=== PATIENT | female | born 1985 | race Caucasian/White ===

== ENCOUNTER 2025-02-12 01:16 | Emergency (ER) | payer BC, SELFPAY ==
[2025-02-12 01:25] VITALS: BP 129/102; PULSE 115; RESP 16; TEMP 36.8; O2SAT 100
--- NOTE | 2025-02-12 01:30 | ECG_ITS ---
Test Date: 2025-02-12 01:39:37 Measurements Intervals [place] Rate: 124 P: 28 IA: 158 QRS: 12 QRSD: 100 T: 32 QT: 324 QTc: 466 Interpretive Statements SINUS TACHYCARDIA POOR R-WAVE PROGRESSION LOW QRS VOLTAGE ABNORMAL RHYTHM ECG No previous ECG available for comparison Electronically Signed On 02-12-2025 07:49:16 CDT by Tim Erickson M.D.
--- NOTE | 2025-02-12 03:50 | ECG_ITS ---
Test Date: 2025-02-12 04:00:08 Measurements Intervals [place] Rate: 114 P: 26 [place]: 161 QRS: 17 QRSD: 98 T: 20 QT: 326 QTc: 449 Interpretive Statements SINUS TACHYCARDIA POOR R-WAVE PROGRESSION BORDERLINE ECG Compared to ECG 02/12/2025 01:39:37 NO SIGNIFICANT CHANGE Electronically Signed On 02-12-2025 07:50:38 CDT by Tim Erickson M.D.
[2025-02-12 04:13] LABS: Hematocrit 38.6 % (37.0-47.0); Hemoglobin 13.0 g/dL (12.0-15.0); Immature Granulocyte Percent A 0.3 % (0-0.5); Lymphocytes Absolute Auto 2.34 K/mm3 (0.9-3.2); Mean Corpuscular HGB Conc 33.7 g/dl (32-36); Mean Corpuscular Hemoglobin 33.8 pg (26-34); Mean Corpuscular Volume 100.3 fl (80-100); Nucleated Red Blood Cells Absolute Auto 0.000 K/mm3 (0.0-0.012); Nucleated Red Blood Cells Perc 0.0 % (0.0-0.2); Platelet Count Result 180 k/mm3 (150-375); Red Blood Count 3.85 M/mm3 (4.2-5.4); White Blood Count 7.1 K/mm3 (4.5-10.0)
--- NOTE | 2025-02-12 04:17 | ED_ITS ---
HPI - General Adult General Chief complaint: Unspecified Stated complaint: tingling in bilateral arms Time Seen by Provider: 02/12/25 04:03 History of Present Illness HPI narrative: 39-year-old female with history of insulin-dependent diabetes, hypothyroidism, hypertension, PCOS, spondyloarthropathy. Patient presents to the emergency department with complaints of feeling lightheaded and having bilateral arm paresthesias. Onset about 45 minutes prior to arrival. States that she just got back from [place] after a long travel [place] today. Has had symptoms previous to this very similarly. Reports some changes to her medications recently including starting trazodone and switching muscle relaxers recently. No trauma or injury. No neck pain, chest pain, back pain, vision changes, headache, abdominal pain, fever, chills. She was otherwise in her normal state of health. Related Data Allergies Allergy/AdvReac Type Severity Reaction Status Date / Time Sulfa (Sulfonamide Allergy Rash Verified 02/12/25 01:19 Antibiotics) iohexol (From contrast - CT, AdvReac Acute Verified 02/12/25 01:19 X-RAY) renal failure Review of Systems 2 Review of Systems: As reviewed above in HPI [facility] Past Medical History Medical History Hypertension Chronic migraine Kidney stones Asthma Spondyloarthritis Gastroparesis Diabetes PCOS (polycystic ovarian syndrome) Hypothyroid Surgical History Surgical History H/O gastric bypass Exam 2 Narrative: GENERAL: Morbidly obese but overall well-appearing not any acute distress, pleasant and cooperative, answering all questions appropriately HEAD: [Normocephalic, atraumatic.] EYES: [PERRLA and EOMI.] ENT: Nares clear, no rhinorrhea or epistaxis. Mucous membranes moist. NECK: Supple. CHEST: Clear to auscultation, no respiratory distress HEART: Mildly tachycardic but regular rhythm. No murmur heard. Normal peripheral pulses and warm extremities ABDOMEN: [Soft, nondistended], [nontender], [No rigidity or guarding] EXTREMITIES: Normal range of motion. [No edema.] SKIN: Warm, dry, no rash. NEURO: [No focal deficits]. Alert and oriented [x3.] Full strength and sensation throughout both arms and legs, no ataxia or dysmetria. No visual deficits, no facial asymmetry, no slurring speech. NIH is 0. PSYCH: [Normal mood and affect.] Course Vital Signs Vital signs: Vital Signs Temperature 36.8 C 02/12/25 01:25 Pulse Rate 115 H 02/12/25 01:25 Respiratory Rate 16 02/12/25 01:25 Blood Pressure 129/102 H 02/12/25 01:25 Pulse Oximetry 100 02/12/25 01:25 Oxygen Delivery Room Air 02/12/25 01:25 Temperature 36.8 C 02/12/25 01:25 Pulse Rate 115 H 02/12/25 01:25 Respiratory Rate 16 02/12/25 01:25 Blood Pressure 129/102 H 02/12/25 01:25 Pulse Oximetry 100 02/12/25 01:25 Oxygen Delivery Room Air 02/12/25 01:25 Medical Decision Making MDM Narrative Medical decision making narrative: 39-year-old female with history of insulin-dependent diabetes, hypothyroidism, hypertension, PCOS, spondyloarthropathy. Patient presents to the emergency department with complaints of feeling lightheaded and having bilateral arm paresthesias. Onset about 45 minutes prior to arrival. States that she just got back from [place] after a long travel [place] today. Has had symptoms previous to this very similarly. Reports some changes to her medications recently including starting trazodone and switching muscle relaxers recently. No trauma or injury. No neck pain, chest pain, back pain, vision changes, headache, abdominal pain, fever, chills. She was otherwise in her normal state of health. Patient has an unremarkable physical examination aside from some mild tachycardia. She is not any acute distress, well-appearing. Symptoms sound benign in etiology given the bilateral nature of the paresthesias that have happened to her previously. She does have a history of thyroid issues as well and takes levothyroxine. She is on several antihypertensives which could also point towards derangements of electrolytes from spironolactone or losartan. Blood was obtained including CBC, CMP, magnesium, TSH level. EKG was obtained in triage and when she had the examination room with improvement in heart rate. No signs of ectopy. He was placed on executive advisor and re-evaluated. She was given fluid bolus. Heart rate came down with fluids, workup shows no leukocytosis or anemia. Normal platelet count. Electrolytes unremarkable. Glucose is unremarkable. Normal magnesium and normal LFTs. TSH is mildly elevated consistent with her history of hypothyroidism. Might contribute to her symptomatology and she will have to follow up with her doctor about dosing adjustments if warranted. EKG shows no signs of ectopy, QTC prolongation or ischemia. Patient re-evaluated and feeling better and expressing desire for discharge. She is safe for discharge home with outpatient follow-up and return precautions. Medical Records Medical records reviewed: Yes I reviewed the external patient's medical records. Vital Signs Vital Signs: Vital Signs Temperature 36.8 C 02/12/25 01:25 Pulse Rate 115 H 02/12/25 01:25 Respiratory Rate 16 02/12/25 01:25 Blood Pressure 129/102 H 02/12/25 01:25 Pulse Oximetry 100 02/12/25 01:25 Oxygen Delivery Room Air 02/12/25 01:25 Temperature 36.8 C 02/12/25 01:25 Pulse Rate 115 H 02/12/25 01:25 Respiratory Rate 16 02/12/25 01:25 Blood Pressure 129/102 H 02/12/25 01:25 Pulse Oximetry 100 02/12/25 01:25 Oxygen Delivery Room Air 02/12/25 01:25 Lab Data Lab results reviewed: Yes I reviewed the patient's lab results. 02/12/25 04:06 02/12/25 04:06 Labs: Lab Results 02/12/25 02/12/25 Range/Units 02:06 04:06 WBC 7.1 (4.5-10.0) K/mm3 RBC 3.85 L (4.2-5.4) M/mm3 Hgb 13.0 (12.0-15.0) g/dL Hct 38.6 (37.0-47.0) % MCV 100.3 H (80-100) fl MCH 33.8 (26-34) pg MCHC 33.7 (32-36) g/dl RDW 11.9 (11.5-14.5) % Plt Count 180 (150-375) k/mm3 MPV 11.0 H (7.4-10.4) fl Immature Gran % (Auto) 0.3 (0-0.5) % Neut % (Auto) 52.3 (45.5-73.1) % Lymph % (Auto) 32.9 (18.3-44.2) % Evans % (Auto) 10.1 H (2.6-8.5) % Eos % (Auto) 3.8 (0-4.4) % Baso % (Auto) 0.6 (0.2-1.2) % Lymph # (Auto) 2.34 (0.9-3.2) K/mm3 Evans # (Auto) 0.7 H (0.1-0.6) K/mm3 Eos # (Auto) 0.3 (0-0.3) K/mm3 Baso # (Auto) 0.0 (0.0-0.1) K/mm3 Abs Immat Gran (auto) 0.02 (0.00-0.031) K/mm3 Absolute Neuts (auto) 3.7 (1.3-6.7) K/mm3 Absolute Nucleated RBC 0.000 (0.0-0.012) K/mm3 Nucleated RBC % 0.0 (0.0-0.2) % Sodium 138 (137-145) mmol/L Potassium 4.2 (3.4-5.0) mmol/L Chloride 105 (98-107) mmol/L Carbon Dioxide 25 (22-30) mmol/L Anion Gap 8 (4-12) mmol/L BUN 11 (7-17) mg/dL Creatinine 0.88 (0.7-1.0) mg/dL Estim Creat Clear Calc Not Reportable Estimated GFR > 60 (59 - ) Glucose 124 H (65-110) mg/dL POC Capillary Glucose 162 H (65-105) mg/dl Calcium 10.4 H (8.4-10.2) mg/dL Magnesium 1.6 (1.6-2.3) mg/dL Total Bilirubin 0.4 (0.2-1.3) mg/dL AST 35 (14-36) U/L ALT 29 (6-35) U/L Alkaline Phosphatase 122 (38-126) U/L Total Protein 7.6 (6.3-8.2) g/dL Albumin 4.1 (3.5-5.1) g/dL TSH (Reflex) 6.130 H (0.465-4.68) uIU/mL Free T4 Pending Discharge Plan Discharge Clinical Impression: Paresthesia of both hands, Light-headedness, Dehydration, Hypothyroidism Patient Disposition: Home Condition: Stable Instructions: Antibiotic Form Additional Instructions: Your workup today shows normal electrolytes, normal heart function, no signs of inflammatory or infectious markers. Your thyroid number is slightly elevated which can be a sign of needing dosing adjustments to her thyroid medications and can cause similar symptoms to what you are experiencing. Overall no urgent or emergent concerns are identified today and you are safe for discharge with outpatient primary care provider follow-up. Return with any emergent concerns. Patient Language: Burundian Follow-up/Referrals: PHYSICIAN NOT ON STAFF,NONSTAFF [Primary Care Provider] - Time of Disposition: 06:13
[2025-02-12 04:31] LABS: Alanine Aminotransferase 29 U/L (6-35); Albumin Level 4.1 g/dL (3.5-5.1); Alkaline Phosphatase 122 U/L (38-126); Anion Gap 8 mmol/L (4-12); Aspartate Amino Transferase 35 U/L (14-36); Bilirubin,Total 0.4 mg/dL (0.2-1.3); Blood Urea Nitrogen 11 mg/dL (7-17); Calcium 10.4 mg/dL (8.4-10.2); Carbon Dioxide 25 mmol/L (22-30); Chloride 105 mmol/L (98-107); Estimated Glomerular Filt Rate > 60; Glucose 124 mg/dL (65-110); Magnesium 1.6 mg/dL (1.6-2.3); Potassium 4.2 mmol/L (3.4-5.0); Sodium 138 mmol/L (137-145); Total Protein 7.6 g/dL (6.3-8.2)
--- OUTSIDE RECORDS SUMMARY | 2025-02-12 04:39 | XMS_ITS | Clinical Summary ---
Author Organization [facility] Address [address] [place] [address] Care Team Providers Care Dyslexia Teacher Name Role Phone June Quick MD Primary Care Provider [phone] Source Comments [facility],non-owned Affiliates and Associated Physician Practices is amultiple site organization consisting of ambulatory clinics and hospital sitesin [place], [place], [place] and [place]. This disclosure is being madepursuant to the Care Everywhere program and may not contain all information available regarding this patient. Last updated 18.[facility] Allergies Active Allergy Reactions Criticality Noted Date Comments Contrast-Iodinated Agents For Ct/Other Renal Injury 07/31/2013 Sulfa Drugs Urticaria Medium 07/27/2019 Medications * Be aware that medications may not be up to date on this document. Alwaysverify current medications with the patient. levothyroxine (SYNTHROID) 100 MCG tablet Take 1 (one) tablet by mouth daily before breakfast Active montelukast (SINGULAIR) 10 MG tablet Take 1 (one) tablet by mouth at bedtime Active lisinopril (PRINIVIL; ZESTRIL) 20 MG tablet Take 20 mg by mouth daily. Active oxycodone-acet aminophen (PERCOCET) 5-325 MG tablet Take 1-2 Tabs by mouth every 6 hours as needed for Pain. 24 Tab 0 4 Active METOPROLOL SUCCINATE PO Take 50 mg by mouth 2 times daily Active nortriptyline (PAMELOR) 10 MG capsule Take 30 mg by mouth at bedtime Active atorvastatin (LIPITOR) 10 MG tablet Take 10 mg by mouth at bedtime Active glipiZIDE CR 24hr (GLIPIZIDE XL) 10 MG tablet Take 10 mg by mouth daily before breakfast Active sulfaSALAzine EC (AZULFIDINE ENTAB) 500 MG tablet Take 3 (three) tablets by mouth 3 times daily Active naproxen (NAPROSYN) 250 MG tablet Take 500 mg by mouth 2 times daily Active pantoprazole EC (PROTONIX) 20 MG tablet Take 40 mg by mouth once daily Active promethazine (PHENERGAN) 12.5 MG half tablet Take 1 (one) Half Tablet by mouth every 6 hours as needed for Nausea/Vomiting Active ondansetron, disintegrating , (ZOFRAN ODT) 4 MG tablet Take 4 mg by mouth every 6 hours as needed for Nausea/Vomiting Allow tablet to dissolve on the tongue Active Butalbital-APA P-Caffeine 50-325-40 MG Active benzonatate (TESSALON) 200 MG capsule Take 1 capsule by mouth 3 times daily as needed for Cough 30 capsule 9 Active methylPREDNISo lone (MEDROL DOSEPAK) 4 MG tablet Take by mouth as directed 1 Each 9 Active Blood Glucose Monitoring Suppl ([employer] Blood Glucose Meter) w/Device KIT Test three times a day before meals. 4 Active acetaminophen (Tylenol) 325 MG tablet Take 2 (two) tablets by mouth 3 Active adalimumab (Humira, 2 Pen,) 40 MG/0.4ML injection Inject 0.4 mL subcutaneously 3 Active Humira, 2 Pen, 40 MG/0.4ML injection 4 Active Active Problems Problem Noted Date Diagnosed Date Elevated testosterone level in female 12/02/2023 Family History Medical History Relation Name Comments Cancer - Other Father Cancer - Lung Maternal Grandfather Cancer - Renal Maternal Grandfather Alzheimer's Disease Maternal Grandmother Cancer - Breast Maternal Grandmother Cancer - Thyroid Maternal Grandmother Relation Name Status Comments Father Maternal Grandfather Maternal Grandmother Social History Tobacco Use Types Packs/Day Years Used Date Smoking Tobacco: Never Smokeless Tobacco: Never Tobacco Cessation:Counseling Given: Not Answered Alcohol Use Standard Drinks/Week Comments No 0 (1 standard drink = 0.6 oz pur e alcohol) PHQ-2 Answer Date Recorded Patient Health Questionnaire-2 Score 0 11/25/2023 Comments No Sex and Gender Information Value Date Recorded Sex Assigned at Not on file Legal Sex Female 6:27 AM MORTGAGE MANAGER Gender Identity Not on file Sexual Orientation Not on file Last Filed Vital Signs Vital Sign Reading Time Taken Comments Blood Pressure 132/83 12/02/2023 9:24 AM CDT Pulse 84 07/27/2019 4:23 PM MORTGAGE MANAGER Temperature 36.6 C (97.9 F) 07/27/2019 4:23 PM MORTGAGE MANAGER Respiratory Rate 16 07/27/2019 4:23 PM MORTGAGE MANAGER Oxygen Saturation 99% 07/27/2019 4:23 PM MORTGAGE MANAGER Inhaled Oxygen Concentration - - Weight 141.5 kg (312 lb) 12/02/2023 9:24 AM CDT Height 172.7 cm (5' 8) 12/02/2023 9:24 AM CDT Body Mass Index 47.44 12/02/2023 9:24 AM CDT Plan of Treatment Health Maintenance Due Date Last Done Comments MAMMOGRAM 1983 HIV SCREENING 1998 HEPATITIS C SCREENING 05/17/2001 DTAP/TDAP/TD VACCINES (1 - Tdap) 2002 HEPATITIS B VACCINE (1 of 3 - 19+ 3-dose series) 2002 HPV VACCINE (1 - 3-dose SCDM series) 2010 PAP SMEAR 06/24/2016 06/24/2013, 0210/2010, 09/20/2009 DIABETES-FOOT EXAM WITH MONOFILAMENT 10/28/2017 DIABETES-HGB A1C 01/08/2024 07/09/2023, , 02/04/2009 COVID-19 VACCINE ( season) 2024 05/10/2023, 11/19/2022, 07/21/2021, Additional history exists DEPRESSION SCREENING 07/29/2024 12/02/2023 DIABETES - URINE PROTEIN SCREENING 07/29/2024 05/28/2023 DIABETES-SERUM CREATININE 11/26/20242023, 09/19/2023, 09/19/2023, Additional history exists INFLUENZA VACCINE (#1) 2025 3, 05/13/2022, 05/10/2021, Additional history exists DIABETES RETINOPATHY SCREENING 07/23/2025 07/23/2023, 05/25/2022, 07/05/2020, Additional history exists ZOSTER VACCINE (1 of 2) 2033 HIB VACCINE Aged Out No longer eligi ble based on patient's age to complete this topic MENINGOCOCCAL (Group B) VACCINE SHARED DECISION-MAKING Aged Out No longer eligible based on patient's age to complete this topic MENINGOCOCCAL GROUPS A/C/Y/W VACCINE Aged Out No longer eligible based on patient's age to complete this topic PNEUMOCOCCAL VACCINE Aged Out No long er eligible based on patient's age to complete this topic Procedures Procedure Name Priority Date/Time Associated Diagnosis Comments PAP IMAGE-GUIDED W HPV Routine 06/24/2013 COMPREHENSIVE METABOLIC PANEL Routine 09/21/2011 3:30 PM MORTGAGE MANAGER HEMOGLOBIN A1C Routine 06/19/2010 9:52 AM MORTGAGE MANAGER from Last 3 Months or Most Recently Relevant to Health Maintenance Results * PAP IMAGE-GUIDED LIQUID BASE W HPV (06/24/2013) Endocervical 06/24/2013 Narrative [facility] - 07/02/2013 11:47 AM MORTGAGE MANAGER us Tim Zamora MD LAB - PATHOLOGY/CYTOLOGY OR DERABLES Final Result Performing Organization Address City/State/[facility] Co de Phone Number [facility] [address] * (ABNORMAL) COMPREHENSIVE METABOLIC PANEL (09/21/2011 3:30 PM MORTGAGE MANAGER) BUN 12 7 - 26 mg/dL [facility] Creatinine 0.8 0.6 - 1.2 mg/dL [facility] eGFR by MDRD > 60 ML/MIN [facility] Comment: Chronic kidney disease: <60 ml/min Kidney failure: <15 ml/min Based on BSA of 1.73m2. Sodium 139 136 - 145 mmol/L [facility] Potassium 3.6 3.5 - 4.5 mmol/L [facility] Chloride 104 98 - 107 mmol/L [facility] CO2 25 22 - 29 mmol/L [facility] Glucose 122(H) 70 - 115 mg/dL [facility] Calcium 8.9 8.4 - 10.2 mg/dL [facility] Protein Total 7.0 6.0 - 8.3 g/dL [facility] Albumin 2.8(L) 3.4 - 5.0 g/dL [facility] Bilirubin Total 0.2 0.2 - 1.2 mg/dL [facility] Alkaline Phosphatase 84 40 - 150 Units/L [facility] ALT 8 0 - 55 Units/L [facility] AST 13 5 - 34 Units/L [facility] Anion Gap 14 8 - 18 [facility] BUN/Creatinine Ratio 15 7 - 23 [facility] Osmolality Calculation 274 270 - 300 mOsm/kg [facility] Albumin/Globulin Ratio 0.7(L) 1.1 - 2.3 [facility] Serum 09/21/2011 3:30 PM MORTGAGE MANAGER 09/21/2011 3:42 PM MORTGAGE MANAGER us Ronen Garcia MD LAB - CHEMISTRY ORDERABLES F inal Result [address] [phone] * (ABNORMAL) HEMOGLOBIN A1C (06/19/2010 9:52 AM MORTGAGE MANAGER) Hemoglobin A1c 6.5(H) 4.4 - 6.3 % [facility] Estimated Average Glucose 140 mg/dL [facility] 06/19/2010 9:52 AM MORTGAGE MANAGER 06/19/2010 10:43 AM MORTGAGE MANAGER us Francis Flanagan MD LAB - CHEMISTRY ORDERABLES Hilda l Result [address] [phone] from Last 3 Months or Most Recently Relevant to Health Maintenance Insurance [facility] Care Teams Dyslexia Teacher Relationship Specialty Start Date End Date June Quick MD [address] [place] [address] PCP - General Internal Medicine 12/02/23
--- OUTSIDE RECORDS SUMMARY | 2025-02-12 04:39 | XMS_ITS | Clinical Summary ---
Author Organization [facility] Address [address] [place] [address] Phone Care Team Providers Care Experimental Display Builder Name Role Phone Provider, Not On File Primary Care Provider Unav ailable Allergies Active Allergy Reactions Criticality Noted Date Comments Iodinated Contrast Media Other (see Comments) 0 09/13/2014 Kidney failure Medications ibuprofen 800 MG PO TABS Take 1 Tab by mouth every 8 hours. 20 Tab 0 09/13/2014 Active HYDROcodone-rich taminophen 5-325 MG PO TABS Take 1-2 Tabs by mouth every 4 hours as needed for Pain. 12 Tab 0 09/13/2014 Active METOPROLOL TARTRATE PO Take 12.5 mg by mouth daily. Active levothyroxine 100 MCG PO TABS Take 100 mcg by mouth daily. Active pantoprazole (PROTONIX) 40 MG PO PACK 40 mg by Per NG tube route 2 times daily (with meals). Active lisinopril 10 MG PO TABS Take 10 mg by mouth daily. Active montelukast (SINGULAIR) 10 MG PO TABS Take 10 mg by mouth every evening. Active loratadine-pseu doephedrine (CLARITIN-D 12 HOUR) 5-120 MG PO TAB-SR-12HR Take 1 Tab by mouth 2 times daily. Active ondansetron (ZOFRAN) 4 MG PO TABS Take 4 mg by mouth every 8 hours as needed for Nausea. Active hyoscyamine (LEVSIN) 0.125 MG PO TABS Take 0.125 mg by mouth every 4 hours as needed for Cramping. Active mometasone (NASONEX) 50 MCG/ACT NA SUSP 2 Sprays by Nasal route daily. Use in each nostril as directed. Active Social History Tobacco Use Types Packs/Day Years Used Date Smoking Tobacco: Never Alcohol Use Standard Drinks/Week Comments Yes 0 (1 standard drink = 0.6 oz pur e alcohol) rarely Comments No Sex and Gender Information Value Date Recorded Sex Assigned at Not on file Legal Sex Female 3:13 PM MACHINE SETTER AUTOMATIC Gender Identity Not on file Sexual Orientation Not on file Last Filed Vital Signs Vital Sign Reading Time Taken Comments Blood Pressure 154/82 09/13/2014 3:17 PM MACHINE SETTER AUTOMATIC Pulse 109 09/13/2014 3:17 PM MACHINE SETTER AUTOMATIC Temperature 36.3 C (97.4 F) 09/13/2014 3:17 PM MACHINE SETTER AUTOMATIC Respiratory Rate 20 09/13/2014 3:17 PM MACHINE SETTER AUTOMATIC Oxygen Saturation 98% 09/13/2014 3:17 PM MACHINE SETTER AUTOMATIC Inhaled Oxygen Concentration - - Weight 127 kg (280 lb) 09/13/2014 3:17 PM MACHINE SETTER AUTOMATIC Height 172.7 cm (5' 8) 09/13/2014 3:17 PM MACHINE SETTER AUTOMATIC Body Mass Index 42.57 09/13/2014 3:17 PM MACHINE SETTER AUTOMATIC Plan of Treatment Not on file Care Teams Experimental Display Builder Relationship Specialty Start Date End Date Provider, Not On File [place] PCP - General 09/13/14
--- OUTSIDE RECORDS SUMMARY | 2025-02-12 04:39 | XMS_ITS | Referral Summary ---
Author Organization [facility] Address [address] [place] [phone] Phone Care Team Providers Care Meat Blender Name Role Phone June Quick MD Primary Care Provider [phone] Allergies Active Allergy Reactions Criticality Noted Date Comments Iodinated Contrast Media Other (See comments) High 05/27/2014 Kidney failure Severe contrast-induced nephropathy Cerner Allergy Text Annotation: Contrast Dye Sulfa (Sulfonamide Antibiotics) Itching Low 10/16/2018 Bactrim. Notes - tolerates sulfasalazine Social History Tobacco Use Types Packs/Day Years Used Date Smoking Tobacco: Never Assessed Personal Safety Answer Date Recorded Have you ever been in or are you currently in a harmful physical or emotional relationship or is someone making you feel afraid or unsafe? Denies 08/09/2023 Comments Unknown Sex and Gender Information Value Date Recorded Sex Assigned at Not on file Legal Sex Female 11:49 AM WELDER TACK Gender Identity Female 06/11/2023 7:32 AM WELDER TACK Sexual Orientation Straight 06/11/2023 7: 32 AM WELDER TACK Last Filed Vital Signs Vital Sign Reading Time Taken Comments Blood Pressure 138/74 08/09/2023 6:00 AM WELDER TACK Pulse 117 08/09/2023 6:00 AM WELDER TACK Temperature 36.6 C (97.9 F) 08/09/2023 2:05 AM WELDER TACK Respiratory Rate 24 08/09/2023 6:00 AM WELDER TACK Oxygen Saturation 95% 08/09/2023 6:00 AM WELDER TACK Inhaled Oxygen Concentration - - Weight 147.4 kg (325 lb) 08/09/2023 2:03 AM WELDER TACK Height 172.7 cm (5' 8) 08/09/2023 2:03 AM WELDER TACK Body Mass Index 49.42 08/09/2023 2:03 AM WELDER TACK Plan of Treatment Not on file Insurance [facility] Care Teams Meat Blender Relationship Specialty Start Date End Date June Quick MD [address] [facility] [address] [place], [place] [id number] PCP - General Internal Medicine 11/29/22
--- OUTSIDE RECORDS SUMMARY | 2025-02-12 04:39 | XMS_ITS | Clinical Summary ---
Author Organization [facility] Virtual Care Address [address] [place] [id number] Phone Care Team Providers Care Gantry Rigger Name Role Phone June Quick MD Primary Care Provider [phone] Allergies Active Allergy Reactions Criticality Noted Date Comments Iodinated Contrast Media Other (See comments) High 05/27/2014 Kidney failure Severe contrast-induced nephropathy Cerner Allergy Text Annotation: Contrast Dye Sulfa (Sulfonamide Antibiotics) Itching Low 10/16/2018 Bactrim. Notes - tolerates sulfasalazine Medical History Medical History Date Comments Diabetes mellitus (HCC) Hypertension Gastroparesis Asthma Hypothyroid PCOS (polycystic ovarian syndrome) Migraines Social History Tobacco Use Types Packs/Day Years [...] on file Legal Sex Female 11:49 AM [employer] JOURNEY[employer] Gender Identity Female 06/11/2023 7:32 AM [employer]LECT[employer]ICAL JOURNEYMAN Sexual Orientation Straight 06/11/2023 7: 32 AM ELECTRICAL JOURNEYMAN Obstetrics History Last Filed Vital Signs Vital Sign Reading Time Taken Comments Blood Pressure 138/74 08/09/2023 6:00 AM ELECTRICAL JOURNEYMAN Pulse 117 08/09/2023 6:00 AM ELECTRICAL JOURNEYMAN Temperature 36.6 C (97.9 F) 08/09/2023 2:05 AM ELECTRICAL JOURNEYMAN Respiratory Rate 24 08/09/2023 6:00 AM ELECTRICAL JOURNEYMAN Oxygen Saturation 95% 08/09/2023 6:00 AM ELECTRICAL JOURNEYMAN Inhaled Oxygen Concentration - - Weight 147.4 kg (325 lb) 08/09/2023 2:03 AM ELECTRICAL JOURNEYMAN Height 172.7 cm (5' 8) 08/09/2023 2:03 AM ELECTRICAL JOURNEYMAN Body Mass Index 49.42 08/09/2023 2:03 AM ELECTRICAL JOURNEYMAN Plan of Treatment Health Maintenance Due Date Last Done Comments Breast Cancer Screening-Mammogram 1983 Cervical Cancer Screening 1983 Depression Screening 1983 Hepatitis C Screening 1983 Varicella Vaccines (1 of 2 - 13+ 2-dose series) 1996 Hepatitis B Screening 2001 Regular Well Visit/Exam 18-64 2001 Pneumococcal vaccine <65 (2 of 2 - PCV) 04/17/2019 04/17/2018 Covid-19 Vaccine ( season) 2024 05/10/2023, 11/19/2022, 07/21/2021, Additional history exists Influenza Vaccine (#1) 2025 , 05/13/2022, 05/13/2022, Additional history exists DTaP/Tdap/Td Vaccine (2 - Td or Tdap) 01/31/2027 01/31/2017 HPV Vaccines Aged Out No longer eligi ble based on patient's age to complete this topic Insurance [facility] Care Teams Gantry Rigger Relationship Specialty Start Date End Date June Quick MD [address] [facility] [address] [place] [address] PCP - General Internal Medicine 11/29/22
[2025-02-12] MEDS: LACTATED RINGERS 1,000 ML 999 ML IV CONT (04:58)
[2025-02-12 05:28] LABS: Thyroid Stimulating Hormone Reflex 6.130 uIU/mL (0.465-4.68)
[2025-02-12 06:11] VITALS: BP 148/86; PULSE 108; RESP 18; O2SAT 99
[2025-02-12 13:02] LABS: Free T4 Free Thyroxine Reflex 1.74 ng/dL (0.78-2.19)
[2025-02-12 14:48] LABS: Total Triiodothyronine (T3) 1.10 NG/ML (0.82-1.58)
== END 2025-02-12 06:18 | disposition home or self-care (01) ==
PROVIDERS: Emergency Provider Student in an Organized Health Care Education/Training Program
DX: R42 Dizziness and giddiness (principal); R20.2 Paresthesia of skin; E86.0 Dehydration; E03.9 Hypothyroidism, unspecified; I10 Essential (primary) hypertension; E28.2 Polycystic ovarian syndrome; E11.43 Type 2 diabetes mellitus with diabetic autonomic (poly)neuropathy; E66.01 Morbid (severe) obesity due to excess calories; J45.909 Unspecified asthma, uncomplicated; K31.84 Gastroparesis; Z98.84 Bariatric surgery status; Z87.442 Personal history of urinary calculi; R00.0 Tachycardia, unspecified; R94.31 Abnormal electrocardiogram [ECG] [EKG]
CPT/HCPCS: 36415; 80053; 82948; 83735; 84439; 84443; 84480; 85025; 93005; 96360; 99283; J7120